=== PATIENT | male | born 1990 | race Two or more races ===

== ENCOUNTER 2020-03-08 23:42 | Emergency (ER) | payer MEDICAID ==
[~2020-03-08] VITALS: Ht 182.9 cm; Wt 75.9 kg
--- NOTE | 2020-03-09 00:06 | NUR ---
Spoke with pt's who reports that pt has a recent dx of bipolar disorder. Reports he had his first "episode" just a few weeks ago with a stay at [facility]. Has been started on Latuda and Lamictal. She reports he has been compliant with Latuda but has been refusing his Lamictal. States he was fine yesterday and this morning but while cutting down a tree in [facility] he became very agitated and started to say things that didn't made sense. She reports he was saying that he is [employer] and that he is depressed because he lost the election. She was able to get him home and calmed down but then around bedtime he became agitated again. He started wandering around his cousins house (where they are staying) and looking for knives and telling her that everyone was against him. She called 911 at this time. [facility] responded and was able to build a rapport with the pt and convinced him to willingly come to the ED and seek help. : Bria
[2020-03-09] MEDS ORDERED: LORazepam 1 MG tablet PO ONE (03:00)
[2020-03-09] MEDS ORDERED: diphenhydrAMINE 25mg capsule PO ONE (03:00)
[2020-03-09] MEDS ORDERED: OLANZapine 5mg rapidly disint. tablet PO ONE ×2 (03:00→03:15)
[2020-03-09 03:16] LABS: URINE AMPHETAMINE SCREEN NEGATIVE (Neg); URINE BARBITUATE SCREEN NEGATIVE (Neg); URINE BENZODIAZEPINES SCREEN NEGATIVE (Neg); URINE CANNABINOID SCREEN NEGATIVE (Neg); URINE COCAINE SCREEN NEGATIVE (Neg); URINE METHADONE SCREEN NEGATIVE (Neg); URINE OPIATE SCREEN NEGATIVE (Neg); URINE PHENCYCLIDINE SCREEN NEGATIVE (Neg)
[2020-03-09] MEDS ORDERED: diphenhydrAMINE 50 mg/ml inj ONE (03:23)
[2020-03-09] MEDS ORDERED: LORazepam 2 mg/ml vial ONE (03:24)
[2020-03-09] MEDS ORDERED: LORazepam 2 mg/ml vial IM ONE ×2 (03:25→12:25)
[2020-03-09] MEDS ORDERED: diphenhydrAMINE 50 mg/ml inj IM ONE (03:25)
[2020-03-09] MEDS ORDERED: OLANZapine **IM** 10 mg inj. IM ONE (03:25)
--- NOTE | 2020-03-09 03:37 | NUR ---
Sukhdeep marvin in [facility] - 03/09/20 at 0338 by ZELDA Patient sleeping in a low fowlers position, head turned left, knees flexed.
--- NOTE | 2020-03-09 03:40 | NUR ---
1 MG ATIVAN ADMINISTERED ORDERED. MEDICATION REMOVED OVERRIDE. WASTE OF 1 MG (1/2 ML) WITNESSED BY HARDEEP DAN
[2020-03-09 04:09] LABS: BASOPHILS % (AUTO) 0.5 % (0-1); EOSINOPHILS % (AUTO) 0.2 % (0-6); HEMATOCRIT 45.6 % (42.0-52.0); HEMOGLOBIN 15.7 g/dl (14.0-17.9); LYMPHOCYTES # (AUTO) 1.9 X10'3 (1.1-4.8); LYMPHOCYTES % (AUTO) 20.7 % (21-51); MEAN CORPUSCULAR HGB CONC 34.5 g/dL (33.0-36.5); MEAN CORPUSCULAR VOLUME 89.8 FL (78-98); MEAN PLATELET VOLUME 9.2 FL (7.4-10.4); MONOCYTES # (AUTO) 0.6 X10'3 (0-0.9); MONOCYTES % (AUTO) 6.4 % (2-12); NEUTROPHILS # (AUTO) 6.6 X10'3 (1.8-7.7); NEUTROPHILS % (AUTO) 72.2 % (42-75); PLATELET COUNT 215 X10'3 (140-440); RED BLOOD COUNT 5.08 X10'6 (4.70-6.10); RED CELL DISTRIBUTION WIDTH 12.6 % (11.5-14.5); WHITE BLOOD COUNT 9.2 X10'3 (4.5-11.0)
[2020-03-09 04:23] LABS: ALANINE AMINOTRANSFERASE 24 U/L (12-78); ALBUMIN 4.8 G/DL (3.4-5.0); ALBUMIN/GLOBULIN RATIO 1.5 (1.1-1.5); ALKALINE PHOSPHATASE 70 IU/L (46-116); ANION GAP 13 (8-16); ASPARTATE AMINO TRANSFERASE 17 U/L (10-37); BILIRUBIN,TOTAL 2.2 MG/DL (0.1-1.0); BLOOD UREA NITROGEN 7 MG/DL (7-18); BUN/CREATININE RATIO 7.5 (5.4-32.0); CALCIUM 9.8 MG/DL (8.5-10.1); CHLORIDE 104 MMOL/L (99-107); CREATININE 0.93 MG/DL (0.60-1.10); GLUCOSE 107 MG/DL (70-104); POTASSIUM 3.5 MMOL/L (3.5-5.1); SODIUM 141 MMOL/L (135-145); TOTAL CARBON DIOXIDE 23.7 MMOL/L (24-32); eGFR > 90 ML/MIN
[2020-03-09 04:33] LABS: ETHANOL < 0.010 GM/DL (0.0-0.010)
--- NOTE | 2020-03-09 05:00 | NUR ---
PT HAS BEEN SLEEPING SUPINE IN BED WITH NO DISTRES NOTED. EQUAL RISE AND FALL OF CHEST.
--- NOTE | 2020-03-09 05:12 | NUR ---
DUE TO PATIENT CONDITION, UNABLE TO OBTAIN MEDICAL HISTORY AND MEDICATION LIST AT THIS TIME.
[2020-03-09 05:15] LABS: CLARITY,URINE CLEAR (Clear); COLOR,URINE YELLOW (Yellow); GLUCOSE, URINE NEGATIVE (Neg); KETONES,URINE 15 mg/dl (Neg); LEUKOCYTE ESTERASE ,URINE NEGATIVE (Neg); NITRITES, URINE NEGATIVE (Neg); OCCULT BLOOD,URINE TRACE-INTACT (Neg); PROTEIN,URINE NEGATIVE (Neg); UROBILINOGEN,URINE 0.2 E.U/dL (0.2-1.0)
[2020-03-09 05:20] LABS: UA COLLECTION TYPE CLN CATCH MIDSTREAM
[2020-03-09 05:23] LABS: BACTERIA,URINE NONE SEEN /HPF (Neg); MUCUS STRANDS MODERATE /LPF (Neg); RBC,URINE 0-2 /HPF (0-2); SQUAMOUS EPITHELIAL CELL,UR FEW /LPF (FEW); WBC,URINE NONE SEEN /HPF (0-4)
--- NOTE | 2020-03-09 07:05 | NUR ---
Pt is resting quietly at this time.
[2020-03-09 07:21] VITALS: BP 119/73
[2020-03-09] MEDS ORDERED: LURA20TA PO (07:40)
[2020-03-09] MEDS ORDERED: LAMO25TA94 PO (07:40)
--- NOTE | 2020-03-09 09:00 | NUR ---
PACKET FAXED TO [facility]
[2020-03-09] MEDS ORDERED: haloperidol lactate 5mg/ml inj IM ONE (12:25)
--- NOTE | 2020-03-09 12:48 | NUR ---
Pt with increasing agitation. Refusing to return to room after walking to bathroom. Pt was escorted back to bed by staff. Dr. Thomas updated, medication orders placed. Pt is now sitting in bed awake, he is disoriented to situation and asking questions about when he will be allowed to leave.
--- NOTE | 2020-03-09 15:41 | NUR ---
Family updated on pt condition. Pt sitting quietly in bed and eating lunch at this time. [facility] reports they will evaluate pt later this evening after 1800. Family and pt aware.
--- NOTE | 2020-03-09 17:42 | NUR ---
Pt is resting quietly in bed.
--- NOTE | 2020-03-09 18:30 | NUR ---
PT SLEEPING AT THIS TIME. RR EVEN AND UNLABORED. WILL CONTINUE TO MONITOR
--- NOTE | 2020-03-09 19:15 | NUR ---
PT AMBULATED TO BATHROOM. NOW REQUESTING TO CALL . PHONE GIVEN TO PATIENT
--- NOTE | 2020-03-09 20:30 | NUR ---
PT APPEARS TO BE SLEEPING. RR EVEN AND UNLABORED. WILL CONTINUE TO MONITOR
--- NOTE | 2020-03-09 21:45 | NUR ---
PT UPDATED ON PLAN OF CARE AND QUESTIONS ANSWERED ABOUT 5150 STATUS. PT TALKING TO AT THIS TIME ON PHONE
--- NOTE | 2020-03-09 22:45 | NUR ---
PT APPEARS TO BE SLEEPING ON BACK. RR EVEN AND UNLABORED. WILL CONTINUE TO MONITOR.
--- NOTE | 2020-03-09 23:30 | NUR ---
PT APPEARS TO BE SLEEPING ON BACK. RR EVEN AND UNLABORED. WILL CONTINUE TO MONITOR.
--- NOTE | 2020-03-10 00:35 | NUR ---
COVERING FOR PRIMARY RN HANH, PT LYING ON RIGHT SIDE SLEEPING NO SIGNS OR SYMPTOMS OF DISTRESS AT THIS TIME, PT APPEARS TO BE RESTING COMFORTABLY.
--- NOTE | 2020-03-10 01:40 | NUR ---
PT APPEARS TO BE SLEEPING ON RIGHT SIDE. RR EVEN AND UNLABORED. NO SIGNS OF DISTRESS. WILL CONTINUE TO MONITOR.
--- NOTE | 2020-03-10 07:02 | NUR ---
NEGATIVE COVID RESULTS FAXED TO [facility]
--- NOTE | 2020-03-10 08:27 | NUR ---
[facility] [employer] ETA 1200.
--- NOTE | 2020-03-10 09:01 | NUR ---
pt walked over from main er to overflow bed 21. pt is using phone to call
--- NOTE | 2020-03-10 09:01 | NUR ---
Sukhdeep marvin in [facility] - 03/10/20 at 0901 by OBINNALIC pt walking from
--- NOTE | 2020-03-10 09:50 | NUR ---
pt is sleeping
== END 2020-03-10 12:02 ==
LOC: ER 23:43
DX: F23 Brief psychotic disorder (principal); Z00.8 Encounter for other general examination; Z20.828 Contact with and (suspected) exposure to other viral communicable diseases; F31.9 Bipolar disorder, unspecified
CPT/HCPCS: 36415; 80053; 80305; 80320; 81001; 84443; 85025; 87635; 96372; 99285; C9803; J1200; J1630; J2060; J3490